=== PATIENT | female | born 1945 | race Caucasian/White ===

== ENCOUNTER → 2016-03-16 | Outpatient (CLI) | payer OTHER, BC ==
--- NOTE | 2016-03-16 13:31 | NM ---
Nuclear Medicine Whole Body Bone Scan Clinical History: 71-year-old female with a history of thyroid cancer noted to have a low suspicion n onaggressive appearing right femoral neck lesion seen in October and unchanged through February. The p atient also has some left shoulder pain. ICD-10 Diagnostic Code: M89.9. Radiopharmaceutical: 21.9 mCi of IV technetium 99m MDP. Technique: Approximately 3-4 hours after the uncomplicated intravenous administration of the radiopha rmaceutical, anterior and posterior planar images of the axial and appendicular skeleton were obtaine d. Comparison Studies: Radiographs of the right hip dated February 08, 2016 and October 16, 2015, MR imagi ng of right hip dated October 28, 2015, and a DEXA scan which included the right hip, dated September 07. Findings: The right femoral neck lesion is not radiotracer-avid, and continued surveillance radiograp hy is suggested to assure continued stability. There is degenerative type uptake associated with mult iple sites, including the acromioclavicular and glenohumeral joints, near the genu of an upper lumbar levoscoliosis and at the posterior right L5-S1 level, involving the left radiocarpal articulation, t he left third digit DIP joint, the right ring finger PIP joint, each patella, and the proximal latera l left tibial plateau. The right antecubital injection point is radiotracer-avid. There is physiologi c uptake within the kidneys and in the urinary bladder. Impression: There is no scintigraphic evidence of osseous metastatic disease.
== END ==
LOC: FIMAGING 08:52
PROVIDERS: ATTEND Internal Medicine
DX: M89.9 Disorder of bone, unspecified (principal); M25.512 Pain in left shoulder; Z85.850 Personal history of malignant neoplasm of thyroid
CPT/HCPCS: 78306; A9503

== ENCOUNTER → 2016-07-26 | Outpatient (CLI) | payer OTHER, BC ==
[~2016-07-26] MED LIST: IOPAMIDOL (ISOVUE-300) 100 ML BTL ONE
== END ==
LOC: FIMAGING 12:18
PROVIDERS: ATTEND Internal Medicine
DX: K57.32 Diverticulitis of large intestine without perforation or abscess without bleeding (principal); K44.9 Diaphragmatic hernia without obstruction or gangrene
CPT/HCPCS: 74177; Q9967

== ENCOUNTER 2016-07-27 11:21 | Inpatient (IN) | payer OTHER, BC ==
[2016-07-27] MEDS ORDERED: HYDROmorphONE/DILAUDID 1 MG/ML SYR IVP PRN (11:57)
[2016-07-27] MEDS ORDERED: PROMETHAZINE HCL 25 MG TAB PO PRN (11:57)
[2016-07-27] MEDS ORDERED: ONDANSETRON DISINTEGRATING 4 MG TAB PO PRN (11:57)
[2016-07-27] MEDS ORDERED: LORazepam 0.5 MG TAB PO PRN (11:57)
[2016-07-27] MEDS ORDERED: ACETAMINOPHEN 325 MG TAB PO PRN (11:57)
[2016-07-27] MEDS ORDERED: diphenhydrAMINE 25 MG CAP PO PRN (11:57)
[2016-07-27] MEDS ORDERED: PROMETHAZINE HCL 25 MG/ML INJ IVP PRN (11:57)
[2016-07-27] MEDS ORDERED: oxyCODONE IR 5 MG TAB PO PRN (11:57)
--- NOTE | 2016-07-27 13:19 | GHP ---
[f rep st] HISTORY AND PHYSICAL DATE OF ADMISSION: 07/27/2016 REASON FOR ADMISSION: Progressive abdominal pain. HISTORY OF PRESENT ILLNESS: The patient is a 71-year-old female who presented to our clinic yesterd ay for acute abdominal pain, mostly in the periumbilical region. She had low-grade fever. A CT abd omen and pelvis was ordered, which identified diverticulitis plus or minus abscess versus cystic flu id collection versus wide-mouth diverticulum. She was placed on Augmentin and Cipro. She had a tem perature of 101 degrees last night, and she feels worse today. She is having spreading lower abdomi nal pain, reduced energy. Her appetite is diminished, and she is having diarrhea. For this reason, she will be admitted for further evaluation. PAST MEDICAL HISTORY: Significant for Hurtle cell carcinoma, hyperparathyroidism, arthritis, asthma , reflux. ALLERGIES: No known drug allergies. Shellfish allergy is noted. No difficulties with contrast yes terday. PAST SURGICAL HISTORY: Thyroidectomy followed by radioactive iodine, parathyroidectomy, both 2014. Hospitalizations only for surgery. FAMILY HISTORY: Father from bladder cancer. Mother had breast cancer and tongue cancer. Brot her with brain and lung cancer. Sister is alive and well. SOCIAL HISTORY: Nonsmoker. Intermittent mild consumption of alcohol. She tries to remain active. She moved to [place] in the relatively recent past. She had a prior colonoscopy roughly 4 years a go without any specific abnormal findings noted. REVIEW OF SYSTEMS: GENERAL: Notable fever, fatigue, chills. Generally does not feel well. HEENT: No unusual headache, light sensitivity, difficulty chewing or swallowing. NECK: No pain. LUNGS: No shortness of breath, cough, wheeze, or congestion. HEART: No sense of chest pain or palpitati ons. GI: She has nausea, reduced appetite. When she eats, she tends to have more cramping. She h as had more loose stools. She is having increasing abdominal pain. The initial center of pain is a round her umbilicus. This is now both lower quadrants of an increasing amount of symptomatic qualit y. Her stools are loose. No black, bloody, or tarry stool. She does not recall specifically how m uch diverticular disease she had on her colonoscopy from 4 years ago. URINARY: No complaints. MUS CULOSKELETAL: No acute complaints. JOINTS: Without acute swelling. PHYSICAL EXAMINATION: VITAL SIGNS: Temperature 99.8 in office this morning. Blood pressure 124/84 . Weight 155. Heart rate 94 beats per minute. Respiratory rate 16. Saturation 96% room air. GEN ERAL: Pleasant female. She appears a bit irritable and tired. HEENT: Unremarkable. NECK: Witho ut masses. LUNGS: Clear bilaterally. HEART: Regular rate and rhythm without murmur. ABDOMEN: P ositive bowel sounds. Soft. There is some periumbilical tenderness as well as some tenderness in t he bilateral lower quadrants. Abdominal exam is performed gently. No deep palpation is performed. CT does show 4.5 cm cystic structure, which appears to be mostly air filled with an air-fluid level in the base. Moderate diverticular inflammation around this area. ASSESSMENT: Diverticulitis, not improving on oral antibiotics. Will admit. Will place on IV fluid s, IV antibiotics. Will obtain surgical consultation with Dr. Ninoska Goddard. I had discussed the rogelio nunez's case with her earlier today. Will follow recommendations. She may need percutaneous drainag e versus further surgical consideration versus IV antibiotics and fluids. Will place on clear liqui d diet to minimize distressed to the gut and follow her symptoms closely. Given the patient's current clinical picture, it is anticipated she will stay more than 2 midnights. /[id number]/MODL
[2016-07-27] MEDS: ERTAPENEM 1 GM in NS 100 ML IV SCH (13:40)
[2016-07-27 13:43] LABS: INR 1.1 (0.83-1.16); PROTIME(PATIENT) 14.1 SEC (12.0-15.0)
[2016-07-27 13:44] LABS: ALANINE AMINOTRANSFERASE 35 IU/L (9-52); ALBUMIN 3.9 g/dL (3.5-5.0); ALKALINE PHOSPHATASE 74 IU/L (38-126); ANION GAP 10 mEq/L (8-16); ASPARTATE AMINOTRANSFERASE 26 IU/L (14-46); BILIRUBIN,TOTAL 1.1 mg/dL (0.1-1.4); CALCIUM 8.9 mg/dL (8.5-10.4); CARBON DIOXIDE 23 mEq/l (22-31); CHLORIDE 103 mEq/L (97-110); GLOMERULAR FILTRATION RATE 55; GLUCOSE 117 mg/dL (70-100); POTASSIUM 4.6 mEq/L (3.5-5.2); SODIUM 136 mEq/L (134-144); TOTAL PROTEIN 6.6 g/dL (6.3-8.2)
[2016-07-27 13:48] LABS: % IMMATURE GRANULYOCYTES 0.3 % (0.0-1.1); ABSOLUTE IMMATURE GRANULOCYTES 0.04 10^3/uL (0.00-0.10); ADD DIFF? NO; ADD MORPH? NO; ADD SCAN? NO; ATYPICAL LYMPHOCYTE FLAG 0 (0-99); FRAGMENT RBC FLAG 0 (0-99); HEMATOCRIT 42.9 % (38.0-47.0); HEMOGLOBIN 14.5 g/dL (12.6-16.3); LEFT SHIFT FLG 20 (0-99); LIPEMIA HEMOLYSIS FLAG 90 (0-99); MEAN CELL HEMOGLOBIN 28.5 pg (27.9-34.1); MEAN CELL HEMOGLOBIN CONCENTR. 33.8 g/dL (32.4-36.7); MEAN CELL VOLUME 84.3 fL (81.5-99.8); MEAN PLATELET VOLUME 10.1 fL (8.7-11.7); PLATELET CLUMPS FLAG 10 (0-99); PLATELET COUNT 214 10^3/uL (150-400); RED BLOOD CELL COUNT 5.09 10^6/uL (4.18-5.33); RED CELL DISTRIBUTION WIDTH 14.2 % (11.5-15.2)
[2016-07-27] MEDS: IBUPROFEN 200 MG TAB PO PRN (13:54)
[2016-07-27] MEDS: D5W 1/2 NS W/ 20 KCl/L 1,000 ML IV SCH ×2 (14:39→22:38)
[2016-07-27 15:29] LABS: SEDIMENTATION RATE 13 MM/HR (0-30)
[2016-07-27 16:21] LABS: C-REACTIVE PROTEIN 144.1 mg/L (<10.0)
[2016-07-27 17:19] LABS: COLOR YELLOW; LEUKOCYTE ESTERASE,URINE NEGATIVE (NEGATIVE); NITRITE,URINE NEGATIVE (NEGATIVE)
[2016-07-27] MEDS ORDERED: BUPIVACAINE 0.5% 30 ML SDV ONE (18:31)
--- NOTE | 2016-07-27 18:40 | GCON ---
[f rep st] CONSULTATION DATE OF CONSULTATION: 07/27/2016 REFERRING PHYSICIAN: MICHAEL Henry REASON FOR CONSULTATION: Abdominal wall abscess/diverticulum, with abdominal pain. HISTORY OF PRESENT ILLNESS: The patient is a 71-year-old woman who noticed abdominal pain Monday mo rning around 3 a.m. It progressed throughout the day. On Monday, she felt slightly better. On Mon, she was feeling worse. She did have associated fevers. She saw her primary care physician, Donya Mendoza, and a CT scan of her abdomen and pelvis was performed. The CT scan showed diverticulit is with a fluid collection/abscess versus a wide-mouth diverticulum. She was placed on Augmentin an d ciprofloxacin. Over the course of 24 hours, she became worse with a temperature of a 101. She wa s admitted to the hospital. She is having diarrhea. She continues to have pain. She had a colonoscopy 4 years ago with diverticulosis, but no diverticulitis. No polyps. PAST MEDICAL HISTORY: Hurthle cell carcinoma, arthritis, asthma, gastroesophageal reflux disease, h yperparathyroidism. PAST SURGICAL HISTORY: Thyroidectomy, followed by radioactive iodine. ALLERGIES: No known drug allergies. FAMILY HISTORY: Significant for bladder cancer in her father, breast cancer, and tongue cancer in h er mother. She has a brother with brain and lung cancer. SOCIAL HISTORY: She has a significant other. She is a nonsmoker. She is active at the gym. REVIEW OF SYSTEMS: Significant for fever, fatigue, chills, and malaise. She is having diarrhea. O therwise, 10-point review of systems negative. PHYSICAL EXAMINATION: VITAL SIGNS: 37.8, 97, 141/84, 14, 94% room air. GENERAL: Pleasant, lying in bed. Appears to not be feeling well, but does not appear overly toxic. HEENT: Normocephalic. No gross hearing deficits. Mucous membranes moist. Pupils equal and round. No scleral icterus. L UNGS: Clear to auscultation bilaterally. No increased work of breathing. CARDIAC: Regular rate. No peripheral edema. ABDOMEN: Bowel sounds are present, soft. Her abdomen is warm to the touch i n the left lower quadrant. She is tender to palpation in the left lower quadrant. There are no kb gical incisions. No hepatosplenomegaly. PSYCH: Mood and affect normal. : Deferred. SKIN: Wa rm and dry. No obvious rashes. NEURO: Grossly intact. RESULTS REVIEWED: I personally reviewed the results of the CT scan and also discussed the results w rose Mayer. I have also reviewed the results of her laboratory work, which is notable for a whi te count of 12.44, and in her CRP is 144. IMPRESSION AND PLAN: The patient is a 71-year-old woman with likely perforated diverticulitis. It is unknown if this is an abscess or part of the actual colon wall. There is not an appropriate appr [facility] to drain this. I had an extensive discussion with the patient about options of w aiting or further imaging versus going to the operating room to explore and either drain an abscess with the potential of doing a colon resection that may even involve an ostomy. I do not believe melia t this will resolve with antibiotics. I am concerned with the location of the fluid collection and that her symptoms are increasing in severity. The risks and benefits, including, but not limited to , stroke, heart attack, , blood clots, infection, bleeding, leak were all discussed. She had h er questions answered to her satisfaction, and would like to proceed with going to the operating lowell mcneil /[id number]/MODL
[2016-07-27] MEDS ORDERED: MIDAZOLAM 2 MG/2 ML VIAL ONE (18:58)
[2016-07-27] MEDS ORDERED: DEXAMETHASONE 4 MG/ML VIAL ONE (19:04)
[2016-07-27] MEDS ORDERED: LIDOCAINE 2% 100 MG/5 ML SYR ONE (19:04)
[2016-07-27] MEDS ORDERED: ONDANSETRON 4 MG/2 ML VIAL ONE (19:04)
[2016-07-27] MEDS ORDERED: fentaNYL 100 MCG/2 ML INJ ONE ×3 (19:05→21:26)
[2016-07-27] MEDS ORDERED: ROCURONIUM 50 MG/5 ML VIAL ONE (19:05)
[2016-07-27] MEDS ORDERED: PROPOFOL 200 MG/20 ML VIAL ONE ×2 (19:05→19:06)
[2016-07-27] MEDS ORDERED: SUGAMMADEX SODIUM 200 MG/2 ML VIAL IVP ONE (20:47)
--- NOTE | 2016-07-27 21:03 | POSTOPPROG ---
Post Op Note Date of Operation: 07/27/16 Surgeon: Ninoska Goddard Anesthesiologist: bertha Anesthesia: GET(General Endotracheal) Pre-op Diagnosis: perforated diverticulitis Post-op Diagnosis: same Indication: 71 yo with abdominal pain, fevers and fluid collection in abdomen Procedure: lap assisted sigmoid colection Findings: large perforated diverticulum Inf/Abcess present in the surg proc area at time of surgery?: Yes Depth: Organ Space EBL: 50-100 Drains: Hector Saldaña Specimen(s): fluid for culture and sigmoid colon
[2016-07-28] MEDS: HYDROmorphONE/DILAUDID 1 MG/ML SYR IVP PRN ×7 (00:59→23:43)
[2016-07-28] MEDS: ONDANSETRON 4 MG/2 ML VIAL IVP PRN ×2 (03:10→08:14)
--- NOTE | 2016-07-28 03:56 | GOP ---
[f rep st] OPERATIVE REPORT DATE OF OPERATION: 07/27/2016 SURGEON: Ninoska Goddard MD ANESTHESIA: General. ANESTHESIOLOGIST: Mayank Hahn MD. PREOPERATIVE DIAGNOSIS: Perforated diverticulum. POSTOPERATIVE DIAGNOSIS: Perforated giant diverticulum. PROCEDURE PERFORMED: Segment laparoscopic sigmoidectomy. FINDINGS: Large diverticulum that was perforated, the sigmoid colon. SPECIMENS: Culture and colon for Pathology. ESTIMATED BLOOD LOSS: 50 cc. INDICATIONS: The patient is a 71-year-old woman, who presented with 3 days of abdominal pain. She had a CT scan performed yesterday showed air-fluid collection either representing a large mouth diverticulum or an abscess. She spiked a fever and felt worse. She presented for admission. DESCRIPTION OF PROCEDURE: The patient brought into the operating room, placed supine on the table, and general anesthesia was administered. She was placed in lithotomy position. Her abdomen and perineum were prepped and draped in the usual sterile fashion. I infiltrated all sites with 0.5% Marcaine prior to making incisions. I made an incision by her umbilicus. I elevated it. I inserted the Veress needle, it passed the hanging drop test. Her abdomen insufflated easily to a pressure of 15 mmHg. I placed a 5 mm trocar with a camera at this site. There were no injuries from Veress needle placement. I placed a 10 mm trocar above the pubis and another 5 mm trocar in the right lower quadrant. She was placed in the Trendelenburg position and tilted toward the right. I moved her small bowel cephalad. I explored her abdomen. She appeared to have fibroids on her uterus. There was a thickened area around the medial aspect of her sigmoid colon. I performed suction dissection and exposed a perforated diverticulum. Fluid was obtained for culture. The colon appeared soft both proximal and distal. I dissected along the white line of Toldt. I then lifted the colon cephalad, and transected the mesentery. Careful attention was drawn to stay close to the colon and to avoid the ureter. Once the mesentery was divided, I could see that I would be able to extracorporealize the bowel without tension. I enlarged the 10 mm trocar incision, divided down through the subcutaneous tissues. I divided the fascia. I the rectus and entered the peritoneum. I placed an Allen wound protector. I was able to extracorporealize the bowel. I aligned it on the antimesenteric borders. I made an enterotomy in each limb and passed a YOVANY 75 stapler to perform a [id number] functional end-to-end anastomosis. I then closed beyond the enterotomy with a YOVANY 75. I reinforced with 3-0 Vicryl. The anastomosis was patent. The bowel appeared pink and healthy. The bowel was returned to the abdomen. The specimen passed off the field. I changed gloves. I then reinsufflated the abdomen and explored it. There were no injuries noted. I performed suction irrigation. I placed a 15 round silicone drain, which exited the trocar site in the right lower quadrant, was sutured into place with 2-0 Prolene. I removed the Allen wound protector. I closed the peritoneum with 0 Vicryl. I closed the fascia with 0 PDS. Closed skin with 3- 0 Vicryl, followed by 4-0 Monocryl. The incision at the umbilicus was closed with 4-0 Monocryl. Dermabond applied. She was taken out lithotomy position, awakened in the operating room, extubated, transferred to PACU in stable condition. /[id number]/MODL MTDD
[2016-07-28 05:46] LABS: % IMMATURE GRANULYOCYTES 0.6 % (0.0-1.1); ABSOLUTE IMMATURE GRANULOCYTES 0.09 10^3/uL (0.00-0.10); ADD DIFF? NO; ADD MORPH? NO; ADD SCAN? NO; ATYPICAL LYMPHOCYTE FLAG 0 (0-99); FRAGMENT RBC FLAG 0 (0-99); HEMATOCRIT 39.2 % (38.0-47.0); HEMOGLOBIN 13.2 g/dL (12.6-16.3); LEFT SHIFT FLG 90 (0-99); LIPEMIA HEMOLYSIS FLAG 80 (0-99); MEAN CELL HEMOGLOBIN 28.9 pg (27.9-34.1); MEAN CELL HEMOGLOBIN CONCENTR. 33.7 g/dL (32.4-36.7); MEAN CELL VOLUME 85.8 fL (81.5-99.8); MEAN PLATELET VOLUME 10.2 fL (8.7-11.7); PLATELET CLUMPS FLAG 0 (0-99); PLATELET COUNT 181 10^3/uL (150-400); RED BLOOD CELL COUNT 4.57 10^6/uL (4.18-5.33); RED CELL DISTRIBUTION WIDTH 13.9 % (11.5-15.2)
[2016-07-28] MEDS ORDERED: LEVOTHYROXINE 88 MCG TAB PO SCH (06:00)
[2016-07-28 06:05] LABS: ANION GAP 9 mEq/L (8-16); CALCIUM 8.3 mg/dL (8.5-10.4); CARBON DIOXIDE 21 mEq/l (22-31); CHLORIDE 105 mEq/L (97-110); CREATININE 0.7 mg/dL (0.6-1.0); GLOMERULAR FILTRATION RATE > 60; GLUCOSE 166 mg/dL (70-100); POTASSIUM 4.7 mEq/L (3.5-5.2); SODIUM 135 mEq/L (134-144)
[2016-07-28] MEDS: ENOXAPARIN 30 MG/0.3 ML SYR SC SCH (07:57)
[2016-07-28] MEDS: ERTAPENEM 1 GM in NS 100 ML IV SCH (08:01)
--- NOTE | 2016-07-28 08:43 | SOAPPROG ---
SOAP Progress Note Assessment/Plan: Assessment: POD # 1 s/p lap segmental sigmoid colon resection for perforated giant diverticulum Neuro - pain controlled with IV Dilaudid 0.2-0.4 q 1 prn Resp - cough, deep breath cards - no active issues GI - Awaiting bowel function to return - voiding without difficulty Heme/ID - Invanz - anticipate 10 day course of antibiotics (day 2/10) Proph - Lovenox Dispo - continue inpatient S: Some belching. No flatus. Pain controlled O: Lying in bed, appears slightly uncomfortable Lungs decreased at bases Regular rate BS present, distended but soft, drain with serosang fluid. Incisions cdi Plan: 07/28/16 08:40 Objective: Vital Signs Temp Pulse Resp BP Pulse Ox 37.0 C 79 18 110/68 92 07/28/16 08:07 07/28/16 08:07 07/28/16 08:07 07/28/16 08:07 07/28/16 08:07 Microbiology 07/27/16 19:50 Gram Stain - Final Other - Aspirate Laboratory Results 07/28/16 04:45 07/28/16 04:45 07/27/16 07/28/16 07/29/16 05:59 05:59 05:59 Intake Total 1712 Output Total 445 Balance 1267 PT 14.1 SEC (12.0-15.0) 07/27/16 13:15 INR 1.10 (0.83-1.16) 07/27/16 13:15 ICD10 Worksheet Patient Problems: Problems Problem Status Onset Perforated diverticulum of large intestine Acute - ICD10 Problem Qualifiers (1) Perforated diverticulum of large intestine
--- NOTE | 2016-07-28 11:40 | SOAPPROG ---
SOAP Progress Note Assessment/Plan: Assessment: Plan: 07/28/16 11:40 Diverticulitis: s/p partial sigmoid resection for ruptured diverticulum with associated abscess. In pain, but doing well overall. Remains on IV antibx. Note WBC increased today from yesterday. Afebrile. Blood sugar elevated: will follow. No hx diabetes. DVT prophylaxis: on compression stockings, and received dose lovenox this morning. 07/28/16 11:42 Subjective: Feeling ok this morning. Lots of pain with any movement. Has noted some bowel sounds but no flatus yet. Objective: Vital Signs Temp Pulse Resp BP Pulse Ox 98.9 C H 85 18 102/51 L 96 07/28/16 11:28 07/28/16 11:28 07/28/16 11:28 07/28/16 11:28 07/28/16 11:28 Microbiology 07/27/16 19:50 Gram Stain - Final Other - Aspirate Laboratory Results 07/28/16 04:45 07/28/16 04:45 07/27/16 07/28/16 07/29/16 05:59 05:59 05:59 Intake Total 1712 Output Total 445 Balance 1267 PT 14.1 SEC (12.0-15.0) 07/27/16 13:15 INR 1.10 (0.83-1.16) 07/27/16 13:15 General: awake, alert, pleasant Lungs: clear bilaterally Cardiovascular: RRR without murmur Abdomen: occasional bowel sound Extremities: support hose, sequential compression stockings in place ICD10 Worksheet Patient Problems: Problems Problem Status Onset Perforated diverticulum of large intestine Acute
[2016-07-28] MEDS: LEVOTHYROXINE 88 MCG TAB PO SCH (13:52)
[2016-07-28] MEDS: D5W 1/2 NS W/ 20 KCl/L 1,000 ML IV SCH ×2 (14:56→23:42)
[2016-07-28] MEDS: IBUPROFEN 200 MG TAB PO PRN (14:57)
[2016-07-29] MEDS: HYDROCODONE/APAP 5/325 TAB PO PRN ×4 (03:43→23:08)
[2016-07-29 05:22] LABS: % IMMATURE GRANULYOCYTES 0.4 % (0.0-1.1); ABSOLUTE IMMATURE GRANULOCYTES 0.04 10^3/uL (0.00-0.10); ADD DIFF? NO; ADD MORPH? NO; ADD SCAN? NO; ATYPICAL LYMPHOCYTE FLAG 0 (0-99); FRAGMENT RBC FLAG 0 (0-99); HEMATOCRIT 36.1 % (38.0-47.0); HEMOGLOBIN 12.1 g/dL (12.6-16.3); LEFT SHIFT FLG 0 (0-99); LIPEMIA HEMOLYSIS FLAG 80 (0-99); MEAN CELL HEMOGLOBIN 28.6 pg (27.9-34.1); MEAN CELL HEMOGLOBIN CONCENTR. 33.5 g/dL (32.4-36.7); MEAN CELL VOLUME 85.3 fL (81.5-99.8); MEAN PLATELET VOLUME 10.1 fL (8.7-11.7); PLATELET CLUMPS FLAG 0 (0-99); PLATELET COUNT 177 10^3/uL (150-400); RED BLOOD CELL COUNT 4.23 10^6/uL (4.18-5.33); RED CELL DISTRIBUTION WIDTH 13.9 % (11.5-15.2)
[2016-07-29] MEDS: LEVOTHYROXINE 88 MCG TAB PO SCH (06:18)
--- NOTE | 2016-07-29 08:30 | SOAPPROG ---
SOAP Progress Note Assessment/Plan: Assessment: Plan: 07/29/16 08:28 fluid overload--improving CKD--follow BUN/Cr closely high probability for VTE although US of UE and LE negative for clot, will continue at treatment dose (renally adjusted) lovenox s/p Right total hip--PT/OT and ambulation mild cellulitis RLE ahuja region--less erythema this am, wound care, continue ancef low protein--continue to encourage eating low iron with anemia--start iv replacement Subjective: The patient feels ok. No new challenges. Urinated every 1-2 hours last night. Ate well for breakfast. Objective: Vital Signs Temp Pulse Resp BP Pulse Ox 36.8 C 77 16 108/63 92 07/29/16 08:12 07/29/16 08:12 07/29/16 08:12 07/29/16 08:12 07/29/16 08:12 Microbiology 07/27/16 19:50 Gram Stain - Final Other - Aspirate Laboratory Results 07/29/16 05:02 07/28/16 04:45 07/28/16 07/29/16 07/30/16 05:59 05:59 05:59 Intake Total 1712 Output Total 445 765 800 Balance 1267 -765 -800 PT 14.1 SEC (12.0-15.0) 07/27/16 13:15 INR 1.10 (0.83-1.16) 07/27/16 13:15 Gen: Bright, pleasant Lungs: diminished, but clear anteriorly Heart: paced RRR Abd + bs soft LUE--evidence of decreasing edema in hand, left elbow still quite swollen LE's improving, reduced erythema to RLE Weight down 1 kg over night Cr/BUN stable US--no DVT ICD10 Worksheet Patient Problems: Problems Problem Status Onset Perforated diverticulum of large intestine Acute
[2016-07-29] MEDS: ENOXAPARIN 30 MG/0.3 ML SYR SC SCH (09:14)
[2016-07-29] MEDS: ERTAPENEM 1 GM in NS 100 ML IV SCH (09:14)
--- NOTE | 2016-07-29 13:06 | SOAPPROG ---
SOAP Progress Note Assessment/Plan: Assessment: POD # 2 s/p lap segmental sigmoid colon resection for perforated giant diverticulum Neuro - pain controlled with IV Dilaudid 0.2-0.4 q 1 prn, started po pain meds Resp - cough, deep breath cards - no active issues GI - flatus and diarrhea. Advance diet - voiding without difficulty Heme/ID - Invanz - anticipate 10 day course of antibiotics (day 3/10), can discharge on po antibiotics Proph - Lovenox Dispo - continue inpatient S: Flatus and diarrhea. Feels much improved Pain controlled O: Lying in bed, appears slightly uncomfortable BS present, distended but soft, drain with serosang fluid. Incisions cdi Plan: 07/28/16 08:40 07/29/16 13:05 Objective: Vital Signs Temp Pulse Resp BP Pulse Ox 36.8 C 71 16 101/60 90 L 07/29/16 12:00 07/29/16 12:00 07/29/16 12:00 07/29/16 12:00 07/29/16 12:00 Microbiology 07/27/16 19:50 Gram Stain - Final Other - Aspirate Laboratory Results 07/29/16 05:02 07/28/16 04:45 07/28/16 07/29/16 07/30/16 05:59 05:59 05:59 Intake Total 1712 Output Total 445 765 800 Balance 1267 -765 -800 PT 14.1 SEC (12.0-15.0) 07/27/16 13:15 INR 1.10 (0.83-1.16) 07/27/16 13:15 ICD10 Worksheet Patient Problems: Problems Problem Status Onset Perforated diverticulum of large intestine Acute - ICD10 Problem Qualifiers (1) Perforated diverticulum of large intestine
[2016-07-30] MEDS: LEVOTHYROXINE 88 MCG TAB PO SCH (05:06)
[2016-07-30] MEDS: HYDROCODONE/APAP 5/325 TAB PO PRN ×3 (05:06→22:38)
[2016-07-30 06:00] LABS: % IMMATURE GRANULYOCYTES 0.4 % (0.0-1.1); ABSOLUTE IMMATURE GRANULOCYTES 0.05 10^3/uL (0.00-0.10); ADD DIFF? NO; ADD MORPH? NO; ADD SCAN? NO; ATYPICAL LYMPHOCYTE FLAG 0 (0-99); FRAGMENT RBC FLAG 0 (0-99); HEMATOCRIT 39.1 % (38.0-47.0); HEMOGLOBIN 12.7 g/dL (12.6-16.3); LEFT SHIFT FLG 10 (0-99); LIPEMIA HEMOLYSIS FLAG 80 (0-99); MEAN CELL HEMOGLOBIN 28.2 pg (27.9-34.1); MEAN CELL HEMOGLOBIN CONCENTR. 32.5 g/dL (32.4-36.7); MEAN CELL VOLUME 86.7 fL (81.5-99.8); MEAN PLATELET VOLUME 10.1 fL (8.7-11.7); PLATELET CLUMPS FLAG 0 (0-99); PLATELET COUNT 236 10^3/uL (150-400); RED BLOOD CELL COUNT 4.51 10^6/uL (4.18-5.33)
[2016-07-30 06:03] LABS: ANION GAP 9 mEq/L (8-16); CALCIUM 8.7 mg/dL (8.5-10.4); CARBON DIOXIDE 26 mEq/l (22-31); CHLORIDE 103 mEq/L (97-110); CREATININE 0.9 mg/dL (0.6-1.0); GLOMERULAR FILTRATION RATE > 60; GLUCOSE 85 mg/dL (70-100); POTASSIUM 4.5 mEq/L (3.5-5.2); SODIUM 138 mEq/L (134-144)
[2016-07-30] MEDS: ENOXAPARIN 30 MG/0.3 ML SYR SC SCH (07:29)
[2016-07-30] MEDS: ERTAPENEM 1 GM in NS 100 ML IV SCH (07:29)
--- NOTE | 2016-07-30 10:36 | SOAPPROG ---
SOAP Progress Note Assessment/Plan: Assessment: POD # 3 s/p lap segmental sigmoid colon resection for perforated giant diverticulum. Path with perforated diverticulum. Micro with mixed intestinal kvng Neuro - pain controlled with po pain meds Resp - cough, deep breath cards - no active issues GI - flatus and diarrhea. Regular diet. Testing for C diff since has been on abx for 5 days with continuous diarrhea - voiding without difficulty Heme/ID - Invanz - anticipate 10 day course of antibiotics (day 410), can discharge on po antibiotics Proph - Lovenox Dispo - home late today or tomorrow. S: Flatus and diarrhea. Feels much improved Pain controlled. Leaking around drain site. Ate 1 piece toast, some egg and peaches this am. O: Sitting up, appears well. BS present, softer today. Removed drain. Incisions cdi Plan: 07/28/16 08:40 07/29/16 13:05 07/30/16 10:30 Objective: Vital Signs Temp Pulse Resp BP Pulse Ox 37.3 C 75 16 128/75 H 93 07/30/16 08:00 07/30/16 08:00 07/30/16 08:00 07/30/16 08:00 07/30/16 08:00 Microbiology 07/27/16 19:50 Gram Stain - Final Other - Aspirate Laboratory Results 07/30/16 05:27 07/30/16 05:27 07/29/16 07/30/16 07/31/16 05:59 05:59 05:59 Intake Total 350 Output Total 765 825 Balance -765 -475 PT 14.1 SEC (12.0-15.0) 07/27/16 13:15 INR 1.10 (0.83-1.16) 07/27/16 13:15 ICD10 Worksheet Patient Problems: Problems Problem Status Onset Perforated diverticulum of large intestine Acute - ICD10 Problem Qualifiers (1) Perforated diverticulum of large intestine
--- NOTE | 2016-07-30 11:26 | SOAPPROG ---
SOAP Progress Note Assessment/Plan: Assessment: Diverticulitis with diverticular perforation. DOing well post resection. Plan: Home in AM. Cont with IV abx today. 07/30/16 11:25 Subjective: Still having some diarrhea and mild abdominal discomfort. No cough or shortness of breath. Objective: Vital Signs Temp Pulse Resp BP Pulse Ox 37.3 C 75 16 128/75 H 93 07/30/16 08:00 07/30/16 08:00 07/30/16 08:00 07/30/16 08:00 07/30/16 08:00 Microbiology 07/27/16 19:50 Gram Stain - Final Other - Aspirate Laboratory Results 07/30/16 05:27 07/30/16 05:27 07/29/16 07/30/16 07/31/16 05:59 05:59 05:59 Intake Total 350 Output Total 765 825 Balance -765 -475 PT 14.1 SEC (12.0-15.0) 07/27/16 13:15 INR 1.10 (0.83-1.16) 07/27/16 13:15 Lungs clear to asc. COR RRR. No significant edema. Pt ambulating. ICD10 Worksheet Patient Problems: Problems Problem Status Onset Perforated diverticulum of large intestine Acute
[2016-07-30 19:47] VITALS: RESP 16
[2016-07-31] MEDS ORDERED: LEVOTHYROXINE 88 MCG TAB PO SCH ×2 (06:00)
[2016-07-31 08:21] VITALS: BP 124/72; PULSE 80; TEMP 98.1; O2SAT 95
[2016-07-31] MEDS: ERTAPENEM 1 GM in NS 100 ML IV SCH (09:50)
[2016-07-31] MEDS: ENOXAPARIN 30 MG/0.3 ML SYR SC SCH (09:52)
--- NOTE | 2016-07-31 10:56 | SOAPPROG ---
SOAP Progress Note Assessment/Plan: Assessment: POD # 4 s/p lap segmental sigmoid colon resection for perforated giant diverticulum. Path with perforated diverticulum. Micro with mixed intestinal kvng Neuro - pain controlled with po pain meds Resp - cough, deep breath cards - no active issues GI - flatus and diarrhea. Regular diet. c diff pending - voiding without difficulty Heme/ID - Invanz - anticipate 10 day course of antibiotics (day 5/10), can discharge on po antibiotics Proph - Lovenox Dispo - home today F/U Dr. Goddard or Morelia Calloway PA-C in 10 days S: Flatus and diarrhea. Feels much improved Pain controlled. tolerating diet O: Sitting up, appears well. CTAB Regular rate BS present, soft. Incisions cdi Plan: 07/28/16 08:40 07/29/16 13:05 07/30/16 10:30 07/31/16 10:55 Objective: Vital Signs Temp Pulse Resp BP Pulse Ox 36.7 C 80 16 124/72 H 95 07/31/16 08:00 07/31/16 08:00 07/31/16 08:00 07/31/16 08:00 07/31/16 08:00 Microbiology 07/27/16 19:50 Gram Stain - Final Other - Aspirate Laboratory Results 07/30/16 05:27 07/30/16 05:27 07/30/16 07/31/16 08/01/16 05:59 05:59 05:59 Intake Total 350 Output Total 825 Balance -475 PT 14.1 SEC (12.0-15.0) 07/27/16 13:15 INR 1.10 (0.83-1.16) 07/27/16 13:15 ICD10 Worksheet Patient Problems: Problems Problem Status Onset Perforated diverticulum of large intestine Acute - ICD10 Problem Qualifiers (1) Perforated diverticulum of large intestine
--- NOTE | 2016-07-31 11:35 | GDS ---
[f rep st] DISCHARGE SUMMARY ADMISSION DIAGNOSIS: Diverticulitis with possible abscess. DISCHARGE DIAGNOSIS: Diverticulitis with abscess with perforation. PROCEDURE: Segmental resection of colon with primary re-anastomosis. COMPLICATIONS: None. HOSPITAL COURSE: The patient was admitted with a diagnosis of diverticulitis. She had a large dive rticulum on CT examination. She was not doing well with home therapy. Seen in consultation by Dr. Goddard who performed a segmental colonic resection, taking out the abscess and some surrounding diver ticula. She did very well postoperatively, was eating and drinking. She had some diarrheal stools, and a C difficile test was sent, but pending at the time of dictation. She has been discharged to home under her own care. DISCHARGE MEDICATIONS: Tylenol as needed, Morral 1 or 2 p.o. b.i.d. p.r.n. severe pain #14 provided. She will restart her levothyroxine 88 mcg daily, amoxicillin clavulanate 875 b.i.d. for 3 days, om ega-3 fatty acids 1000 mg daily. She will follow up with Dr. Goddard in 1 week and will follow up in my office if she has any problems or complications in the interim. /[id number]/MODL
== END 2016-07-31 12:14 | disposition home or self-care (01) | DRG 330 ==
LOC: F3E 12:13
PROVIDERS: ADMIT Internal Medicine; ATTEND Internal Medicine
PROC: 0DTN4ZZ Resection of Sigmoid Colon, Percutaneous Endoscopic Approach (ICD-10-PCS; principal; 2016-07-27 19:00)
DX: K57.20 Diverticulitis of large intestine with perforation and abscess without bleeding (principal); Z85.821 Personal history of Merkel cell carcinoma; E21.3 Hyperparathyroidism, unspecified; K21.9 Gastro-esophageal reflux disease without esophagitis; J45.909 Unspecified asthma, uncomplicated
CPT/HCPCS: 97116-GP; 97162-GP; 97530-GP; G8978-GP-CI; G8979-GP-CH; G8980-GP-CH; J1100; J1170; J1335; J1650; J2001; J2250; J2405; J2704; J3010; Q9967

== ENCOUNTER → 2017-03-13 | Outpatient (CLI) | payer OTHER, BC | LOC: CIMAGING 09:57 | PROVIDERS: ATTEND Internal Medicine | DX: N94.89 Other specified conditions associated with female genital organs and menstrual cycle (principal); K63.9 Disease of intestine, unspecified; K44.9 Diaphragmatic hernia without obstruction or gangrene | CPT/HCPCS: 74176-PO ==